=== PATIENT | male | born 1995 | race Caucasian/White ===

== ENCOUNTER 2018-05-14 23:41 | Emergency (ER) | payer OTHER ==
[~2018-05-14] VITALS: Ht 177.8 cm; Wt 79.4 kg
[2018-05-14 23:41] VITALS: BP 122/66
--- NOTE | 2018-05-14 23:41 | NUR ---
BIB [facility] in custody. Left hand lac. Bleeding controlled.
[2018-05-15] MEDS ORDERED: LIDOCAINE 2% 1000 MG/50 ML VIAL INJ ONE (00:05)
[2018-05-15 00:30] VITALS: BP 102/60
--- NOTE | 2018-05-15 00:30 | NUR ---
Patient discharged with v/s stable. Written and verbal after care instructions given and explained. Patient verbalized understanding. Police with in custody. All questions addressed prior to discharge. Advised to follow up with [employer].
== END 2018-05-15 00:32 ==
LOC: MED 23:41
DX: S61.412A Laceration without foreign body of left hand, initial encounter (principal); V00.131A Fall from skateboard, initial encounter; Y93.51 Activity, roller skating (inline) and skateboarding; Y99.8 Other external cause status; Y92.89 Other specified places as the place of occurrence of the external cause
CPT/HCPCS: 12001; 99283; J2001